=== PATIENT | male | born 1955 | race Caucasian/White ===

== ENCOUNTER 2017-05-27 10:58 | Observation (INO) | payer BC, OTHER ==
[2017-05-27] MEDS ORDERED: NS 0.9% 1000 ML* 1,000 ML IV ONE (11:33)
[2017-05-27] MEDS ORDERED: Metoclopramide IV* 5 MG/ML 2 ML VIAL IV SLOW PU ONE (11:33)
[2017-05-27 11:51] LABS: Hematocrit 42 % (42-52); Hemoglobin 14.1 g/dl (14.0-18.0); Mean Corpuscular HGB Conc 34 g/dl (31-36); Mean Corpuscular Hemoglobin 31 pg (27-31); Mean Corpuscular Volume 93 fL (80-94); Mean Platelet Volume 9 um3 (7.4-10.4); Red Cell Distribution Width 14 % (10.5-15); White Blood Count 14.1 10^3/ul (3.5-10.8)
[2017-05-27] MEDS ORDERED: Meclizine TAB* 12.5 MG PO ONE ×2 (11:53→16:07)
[2017-05-27 12:16] LABS: Albumin 3.4 g/dL (3.2-5.2); BUN/Creatinine Ratio 12.9 (8-20); Calcium 8.7 mg/dL (8.6-10.3); EGFR Non-African American 59.1 (>60); Globulin 2.2 g/dL (2-4); Total Bilirubin 0.7 mg/dL (0.2-1.0); Total Protein 5.6 g/dL (6.4-8.9)
--- NOTE | 2017-05-27 12:17 | RAD ---
HISTORY: Vertigo COMPARISONS: ] A October 02, 2012 TECHNIQUE: Multiple contiguous axial CT scans were obtained of the head without intravenous contrast. FINDINGS: HEMORRHAGE/INFARCT: There is no hemorrhage or acute infarct. MASSES/SHIFT: There is no mass or shift. EXTRA-AXIAL SPACES: There are no extra-axial fluid collections. SULCI AND VENTRICLES: The sulci and ventricles are normal in size and position for the patient's stated age. CEREBRUM: There are no focal parenchymal abnormalities. BRAINSTEM: There are no focal parenchymal abnormalities. CEREBELLUM: There are no focal parenchymal abnormalities. VESSELS: The vessels are grossly normal. PARANASAL SINUSES: The paranasal sinuses are clear. ORBITS: The orbits are unremarkable. BONES AND SOFT TISSUE: No bone or soft tissue abnormalities are noted. OTHER: None IMPRESSION: NO ACUTE INTRACRANIAL PATHOLOGY.
[2017-05-27] MEDS ORDERED: Diazepam SYRINGE* 5 MG/ML 10 ML SYRINGE (50 MG total) IV ONE ×2 (13:09→16:20)
[2017-05-27] MEDS ORDERED: PROCHLORPERAZINE INJ 5 MG/ML 2 ML VIAL IV ONE (14:25)
--- NOTE | 2017-05-27 15:26 | RAD ---
HISTORY: Vertigo COMPARISONS: Head CT dated May 27, 2017, MRI dated October 02, 2012 TECHNIQUE: The following sequences were obtained of the head: Sagittal T1-weighted images, axial T2-weighted images, axial FLAIR images, axial susceptibility weighted images, axial T1-weighted images. Additionally, axial diffusion-weighted images were obtained with calculated apparent diffusion coefficients. FINDINGS: HEMORRHAGE/INFARCT: There is no hemorrhage or acute infarct. MASSES/SHIFT: There is no mass or shift. EXTRA-AXIAL SPACES/MENINGES: There are no extra-axial fluid collections. SULCI AND VENTRICLES: The sulci and ventricles are normal in size and position for the patient's stated age. CEREBRUM: There are no focal parenchymal abnormalities. BRAINSTEM: There are no focal parenchymal abnormalities. CEREBELLUM: There are no focal parenchymal abnormalities. The cerebellar tonsils are normal in size and position. SELLA: The sella is normal. PINEAL: The pineal region is clear. CP ANGLE/TEMPORAL BONES: The labyrinthine structures are grossly normal. VESSELS: Normal flow-voids are noted within the visualized vertebral vasculature. DIFFUSION ABNORMALITIES: There are no diffusion abnormalities. PARANASAL SINUSES/MASTOIDS: There is a mucous retention cyst of the left maxillary sinus. ORBITS: The orbits are unremarkable. BONES AND SOFT TISSUE: No bone or soft tissue abnormalities are noted. OTHER: None IMPRESSION: 1. UNREMARKABLE MRI OF THE BRAIN. NO RESTRICTED DIFFUSION TO SUGGEST ACUTE INFARCT.
[2017-05-27] MEDS ORDERED: methylPREDNISolone 125 MG* 2 ML VIAL IV ONE (16:07)
[2017-05-27] MEDS ORDERED: Meclizine TAB* 12.5 MG PO PRN (17:05)
[2017-05-27] MEDS ORDERED: Acetaminophen TAB* 325 MG PO PRN (17:06)
[2017-05-27] MEDS ORDERED: Ondansetron INJ* 2 MG/ML VIAL IV PRN (17:06)
[2017-05-27] MEDS ORDERED: PROCHLORPERAZINE INJ 5 MG/ML 2 ML VIAL IV PRN (17:40)
[2017-05-27] MEDS ORDERED: Enoxaparin(*) 30 MG/0.3 ML SYR SUBCUT SCH (18:00)
--- NOTE | 2017-05-27 20:22 | CONS ---
NEUROLOGY CONSULTATION: DATE OF CONSULT: 05/27/17 LOCATION: He is in the emergency room. REFERRING PROVIDER: Dr. Chintan Rasheed. CHIEF COMPLAINT: Vertigo and nausea. HISTORY OF PRESENT ILLNESS: Jas Phelps is a 62-year-old man, who has been in his usual state of health this morning about an hour after he got up when he bent over and suddenly everything started spinning. He developed nausea and vomiting and could not walk. He eased himself to the ground. His , I believe, called 911 and he was brought into the emergency room. In the emergency room, he has been given some meclizine and metoclopramide and he feels a little bit better, but not much. He still has marked dizziness and nausea. He has had a couple of brief episodes of vertigo less than a minute each several years ago, but nothing else. He has no significant change in hearing or fullness in his ears today. He just flew back from [place] yesterday and did not have any problems with the flight other than related to his prostate and frequent urination. He has not had any recent colds, flus, or fevers. He does not have any problems with headache, neck pain, or ear pain. He has not noticed any double vision or numbness in his extremities other than chronic numbness and tingling in his feet, for which he was evaluated by Dr. Staton in the past. He has no significant weakness of his limbs. There has been no change in his speech. 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 MEDICATIONS: He does not take any medications at home. ALLERGIES: He is allergic to SULFA drugs, but does not know what the reaction was. SOCIAL HISTORY: He is a nonsmoker. REVIEW OF SYSTEMS: Negative for cardiac disease, pulmonary problems, other GI problems. He has prostatic hypertrophy and urinary frequency. He has a history of migraines in the past. He has a history of right knee meniscus problem for which he wears a brace. PHYSICAL EXAM: He is well-nourished and looks uncomfortable. Blood pressure on the monitor is 160/100, last recorded in the computer is 130/80. Heart rate is 90 and sinus on the monitor, respiratory rate is 18, and oxygen saturation is 100% on room air. Temperature is 98.3 on temporal scan. Neck is supple. Heart is in a regular rate and rhythm without murmurs. Lungs are clear anterolaterally. There are no cervical bruits. Neurological exam, pupils are equal at about 4 mm in dim room light, reacting consensually to 2.5 mm to bright light. Eye movements are full with right- beating nystagmus in primary position, which is accentuated to right gaze with torsional component, and present to some extent in up gaze also in the same direction. Nystagmus dissipates in down gaze and is not present in left gaze. Visual ontiveros are full to confrontation. Funduscopic exam reveals normal discs and vessels bilaterally. Facial musculature is symmetric. Facial sensation is intact and symmetric to light touch, temperature, and pin discrimination. Palate and tongue appear normal. Palate rises symmetrically and tongue protrudes in the midline. There is no dysarthria. Hearing is intact to light tuning fork bilaterally and Delgado's test is midline. Motor exam reveals normal strength and tone in the upper and lower extremities. There is no drift of any limb. Cgfcit-tx-gefa maneuver is normal bilaterally. Mxqn-fu-nujc maneuvers normal bilaterally. There is no rest tremor. There is no sustention tremor. Sensory exam: The limbs are symmetric to temperature, pin, and light touch. There is mild loss of vibratory sense in the feet. Reflexes are hypoactive, trace at the knees, absent at the ankles. Plantar responses are flexor bilaterally. I did not attempt to ambulate him. I attempted a head thrust test, but it aggravated his nausea such that I was not able to discern any clear abnormality or actually doing adequate test. He is alert and oriented and an excellent historian. Memory is intact and language is fluent. He has good attention, concentration, and fund of knowledge. DIAGNOSTIC STUDIES/LAB DATA: Includes a CT of the brain without contrast, which I reviewed and is interpreted by the radiologist as normal. Laboratory studies are notable for creatinine of 1.24, which is stable if not lower than his historic creatinines, which ranged between 1.24 and 1.45 over the last 3 years. His glucose today is 135. The rest of the chemistry profile was unremarkable. CBC is notable for white blood cell count of 14.1 with normal hemoglobin and platelet count. There is no left shift. 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 He has unidirectional nystagmus and no other findings on neurological exam to suggest a central nervous system process. However, the sudden onset when he was well for the first hour of the day, suggests a possible vascular onset. Therefore, I recommend the non- contrasted brain MRI scan. If that is negative, then I think he can continue to be treated symptomatically with antiemetics and anti- vertigo medicines such as benzodiazepines, Zofran, and Reglan. [id number]/[facility] #: [id number] HEL[facility] HAYES HOSPITALCecile
--- NOTE | 2017-05-27 22:04 | ED ---
Ingris Abernathy Thomas, scribed for Chintan Rasheed MD on 05/27/17 at 1131 . Dizziness - HPI Summary HPI Summary: The pt is a 62 y/o M presenting to the ED c/o dizziness characterized as room- spinning, nausea, and vomiting that began today at about 09:00. He did not wake up with this dizziness. The symptoms are aggravated when the patient opens his eyes or moves his head. The patient has treated the symptoms with nothing DIRECTOR OF DIAGNOSTIC IMAGING. Pt additionally c/o unsteady gait (secondary to dizziness). Pt denies headache, tinnitus, hearing loss, chest pain, and SOB. He reports prior episodes of dizziness that are similar to his current symptoms. - History Of Current Complaint Chief Complaint: EDDizziness Stated Complaint: DIZZY/NAUSEA/VOMITING Hx Obtained From: Patient Onset/Duration: Still Present Timing: Constant Severity Currently: Moderate Character: Room Spinning Aggravating Factor(s): Other - Movement, opening eyes Associated Signs And Symptoms: Positive: Nausea, Vomiting, Unsteady Gait. Negative: Tinnitus, Chest Pain, SOB, Visual Changes, Other: - headache, hearing loss Related History: Similar Episode/Dx as - similar prior episodes - Allergies/Home Medications Allergies/Adverse Reactions: Allergies Allergy/AdvReac Type Severity Reaction Status Date / Time Sulfa Drugs Allergy PT UNSURE- Verified 02/07/17 10:38 WAS WHEN HE WAS 6 YRS OLD PMH/Surg Hx/FS Hx/Imm Hx Previously Healthy: No Endocrine/Hematology History: Reports: Hx Thyroid Disease - hypothyroidism Denies: Hx Diabetes Cardiovascular History: Denies: Hx Hypertension, Hx Pacemaker/ICD GI History: Reports: Hx Irritable Bowel History: Reports: Hx Benign Prostatic Hyperplasia Denies: Hx Renal Disease Sensory History: Denies: Hx Hearing Aid Psychiatric History: Denies: Hx Panic Disorder - Cancer History Cancer Type, Location and Year: SKIN CA - Surgical History Surgery Procedure, Year, and Place: Lt SHOULDER- ARTHROSCOPIC- 1997 Infectious Disease History: No Infectious Disease History: Reports: Traveled Outside the [place] in Last 30 Days - Family History Known Family History: Positive: Other - Migraines - Social History Lives: With Family Alcohol Use: Occasionally Substance Use Type: Reports: None Smoking Status (MU): Never Smoked Tobacco Review of Systems Negative: Fever, Chills Negative: Erythema - eyes Negative: Sore Throat, Other - tinnitus, hearing loss Negative: Chest Pain Negative: Shortness Of Breath, Cough Positive: Vomiting, Nausea. Negative: Abdominal Pain Negative: dysuria, hematuria Negative: Myalgia, Edema - legs Negative: Rash Neurological: Other - Dizziness, unsteady gait (secondary to dizziness) All Other Systems Reviewed And Are Negative: Yes Physical Exam - Summary Physical Exam Summary: Constitutional: Well-developed, Well-nourished, Alert. (-) Distressed Skin: Warm, Dry HENT: Eyes: Conjunctiva normal Neck: Musculoskeletal ROM normal neck. (-) JVD, (-) Stridor, (-) Tracheal deviation Cardio: Rhythm regular, rate normal, Heart sounds normal; Intact distal pulses; The pedal pulses are 2+ and symmetric. Radial pulses are 2+ and symmetric. (-) Murmur Pulmonary/Chest wall: Effort normal. (-) Respiratory distress, (-) Wheezes, (-) Rales Abd: Soft. (-) Tenderness, ~(-) Distension, (-) Guarding, (-) Rebound Musculoskeletal: (-) Edema Lymph: (-) Cervical adenopathy Neuro: The patient has resting nystagmus that does not increase with [place] to either side. Alert, Oriented x3, Strength normal, Cranial nerves II- XII are grossly intact. (-) Dysmetria, (-) Ataxia by finger to nose testing, (- ) Sensory deficit. Psych: Mood and affect Normal Triage Information Reviewed: Yes Vital Signs On Initial Exam: Initial Vitals Temp Pulse Resp BP Pulse Ox 98.3 F 72 20 130/98 98 05/27/17 11:06 05/27/17 11:06 05/27/17 11:06 05/27/17 11:06 05/27/17 11:06 Vital Signs Reviewed: Yes - [place] Coma Scale Coma Scale Total: 15 Diagnostics - Vital Signs Vital Signs Temp Pulse Resp BP Pulse Ox 05/27/17 11:06 98.3 F 72 20 130/98 98 - Laboratory Result Diagrams: 05/27/17 11:42 05/27/17 11:42 Lab Statement: Any lab studies that have been ordered have been reviewed, and results considered in the medical decision making process. - CT CT Brain CT Interpretation: No Acute Changes - No acute intracranial pathology. ED physician has reviewed this report and agrees. GCS 15. CT Interpretation Completed By: Radiologist - EKG 11:51 Cardiac Rate: NL EKG Rhythm: Sinus Rhythm EKG Interpretation: 76 BPM. No STEMI. - Additional Comments Diagnostic Additional Comments: MRI Brain without Contrast. Interpreted by radiologist. Impression: 1. UNREMARKABLE MRI OF THE BRAIN. NO RESTRICTED DIFFUSION TO SUGGEST ACUTE INFARCT. ED physician has reviewed this report and agrees. Re-Evaluation - Re-Evaluation First Eval Re-Evaluation Time: 12:39 Change: Unchanged Comment: The patient was re-evaluated. His condition is unchanged. He denies diplopia. Second Eval Re-Evaluation Time: 14:25 Change: Unchanged Comment: The patient has no improvement with Valium. Third Eval Re-Evaluation Time: 16:22 Change: Unchanged Comment: The patient is still having acute nystagmus, discomfort, and nausea. I feel that he would be unable to stand and would be at risk for injury. Dr. Alejo also evaluated the patient and he recommends admission for further supportive care. The patient had concerns about taking steroids as his in house cra told him that it could reactivate his skin cancer. Dizzy Course/Dx - Course Assessment/Plan: The pt is a 62 y/o M presenting to the ED c/o dizziness characterized as room-spinning, nausea, and vomiting that began today at about 09:00. He did not wake up with this dizziness. The symptoms are aggravated when the patient opens his eyes or moves his head. The patient has treated the symptoms with nothing DIRECTOR OF DIAGNOSTIC IMAGING. Pt additionally c/o unsteady gait (secondary to dizziness). Pt denies headache, tinnitus, hearing loss, chest pain, and SOB. He reports prior episodes of dizziness that are similar to his current symptoms. In the ED course the patient was given IV fluids, Meclizine, and Reglan. Bloodwork shows WBC 14.1, creatinine 1.24, and glucose 135. EKG shows sinus rhythm at 76 BPM with no STEMI. CT Brain shows no acute intracranial pathology. I consulted with Dr. Alejo, neurologist, who came to the ED to evaluate the patient. He suspects vesticular neuritis, but he recommends MRI due to the acute onset of symptoms. MRI Brain shows 1. UNREMARKABLE MRI OF THE BRAIN. NO RESTRICTED DIFFUSION TO SUGGEST ACUTE INFARCT. At re-evaluation at 16:40, the patient is still having acute nystagmus, discomfort, and nausea. I feel that he would be unable to stand and would be at risk for injury. Dr. Alejo also evaluated the patient and he recommends admission for further supportive care. The patient had concerns about taking steroids as his in house cra told him that it could reactivate his skin cancer. The patient is diagnosed with vestibular neuritis. The patient will be admitted to [facility] by Dr. Montejo. - Diagnoses Provider Diagnoses: Vestibular neuritis - Provider Notifications Discussed Care Of Patient With: Dominguez Alejo Time Discussed With Above Provider: 12:32 Instructed by Provider To: Other - I consulted with Dr. Alejo, neurology, who will come to the ED to see the patient. He would like to hold off on the MRI until he has evaluated the patient. After his evaluation, he suspects vesticular neuritis, but he recommends MRI due to the acute onset of symptoms. After the MRi and due to the patient's nystagmus, discomfort, and nausea, Dr. Morrow recommends admission for further supportive care. I consulted with Dr. Montejo, hospitalist, who will admit the patient. Discharge - Discharge Plan Condition: Fair Disposition: HOME Prescriptions: Meclizine TAB* [Antivert 12.5 TAB*] 25 mg PO TID #15 tab Methylprednisolone [Medrol Dosepak 4 MG*] 1 mg PO .SEE BATOOL INSTRUCTION #1 packet Ondansetron TAB* [Zofran 4 MG Tab*] 4 mg PO Q6H PRN #12 tab PRN Reason: Nausea/Vomiting Patient Education Materials: Dizziness (ED) Referrals: Marcin Rosales MD [Medical Doctor] - 3 Days Additional Instructions: Follow up with your Dr. Rosales, Ear/Nose/Throat doctor, in 2-3 days. Return to the emergency department for any new or worsening symptoms. The documentation as recorded by the Ingris cisneros Thomas accurately reflects the service I personally performed and the decisions made by me, Chintan Rasheed MD.
--- NOTE | 2017-05-27 23:02 | HP ---
CC: Dr. Gaona; Dr. Alejo * HISTORY AND PHYSICAL: DATE OF ADMISSION: 05/27/17 PRIMARY CARE PHYSICIAN: Dr. Gaona. ATTENDING PHYSICIAN: Zakia Montejo MD * (report dictated by Lyudmila Frederick NP) CHIEF COMPLAINT: Dizziness. HISTORY OF PRESENT ILLNESS: The patient is a 62-year-old male with past medical history significant for only hypothyroidism, who presents to the emergency room with a complaint of sudden onset of dizziness. The patient just took a long flight back from a trip in [place]. This morning, about an hour after woke up, the patient developed dizziness, vertigo, and nausea. The patient was unable to walk through the house and was throwing up. The patient was brought to the emergency room for further evaluation. In the emergency room , the patient received a dose of Solu-Medrol, meclizine, as well as IV Valium. With these medications, the patient states he feels a little bit better. The patient last vomited around 2 p.m. The patient had an MRI that was negative for any acute stroke. The patient was seen in consultation by Dr. Alejo from Neurology. Recommendation was for the patient to be observed overnight for symptom management as he is unable to currently walk and return home. The patient was placed on observation for acute labyrinthitis. PAST MEDICAL HISTORY: Hypothyroidism. PAST SURGICAL HISTORY: Rotator cuff tear. MEDICATION: Synthroid 88 mcg oral daily. ALLERGIES: SULFA. FAMILY HISTORY: Reviewed and noncontributory. SOCIAL HISTORY: The patient denies any tobacco, alcohol, or drug use. He is retired. He is . His , Bree, is the surrogate decision maker in the event the patient cannot make decisions for himself. REVIEW OF SYSTEMS: I performed a 14-point review of systems; all the pertinent positives and negatives are mentioned in the history of present illness. The remaining review of systems is negative. PHYSICAL EXAMINATION GENERAL APPEARANCE: The patient was alert, lying in bed with eyes closed, appeared to be in no acute distress. VITAL SIGNS: Temperature 98.3, heart rate 97, respiratory rate 16, blood pressure 122/84, oxygen saturation 97%. HEAD, EYES, EARS, NOSE, AND THROAT: Normocephalic/atraumatic. Eyes: Nystagmus noted with right and left gaze. Pupils are equal and reactive to light. Extraocular movements were intact. NECK: Supple. There is no lymphadenopathy noted. RESPIRATORY: There was no accessory muscle use. Lungs were clear to auscultation. CARDIAC: S1, S2 were crisp. There were no murmurs, rubs, or gallops heard. ABDOMEN: Soft, nontender, and nondistended. There are bowel sounds x4. EXTREMITIES: There was no lower extremity edema. DP and PT pulses were 2+ and symmetric. MUSCULOSKELETAL: There is no clubbing or cyanosis noted. The patient exhibited equal strength in all extremities. SKIN: There were no rashes or abnormalities seen. NEURO: Cranial nerves II through XII are intact. The patient moves all extremities. Lower extremities were intact to light touch. PSYCH: The patient is alert and oriented x3. DIAGNOSTIC STUDIES/LAB DATA: Sodium 136, potassium 4, chloride 109, CO2 21, BUN 16, creatinine 1.2, glucose 135, calcium 8.7. Liver function tests within normal limits. White blood cell count 14.1, hemoglobin 14.1, hematocrit 42, and platelet count 196. CT of the brain without contrast from today shows no acute intracranial pathology. MRI of the brain without contrast reads unremarkable. MRI of the brain, no restricted diffusion to suggest acute infarct. IMPRESSION: This is a 62-year-old male with past medical history significant only for hypothyroidism, who presented to the emergency room with a complaint of sudden onset of dizziness. The patient will be placed on observation for presumed labyrinthitis. ASSESSMENT AND PLAN: 1. Labyrinthitis. The patient will be placed on the medical floor for supportive care. He will have meclizine and Valium as needed as well as Compazine and Zofran for nausea. The patient will have Physical Therapy evaluation in the morning. The patient may need vestibular therapy at discharge. The patient was given a dose of Solu-Medrol in the emergency room, yet the research on use of corticosteroids in the setting of labyrinthitis is inconclusive for the time being. The patient will not be on any further corticosteroids. 2. Hypothyroidism. Synthroid will continue. 3. Fluids, electrolytes, and nutrition: The patient will have a regular diet. He will also have IV fluids as his oral intake is not very significant at this point. 4. DVT prophylaxis: He is at moderate risk. He will have subcu Lovenox. TIME SPENT: The time for this admission was 60 minutes and 30 minutes was spent with the patient discussing medications, past medical history, and events leading up to his arrival in the emergency room. Reviewed by LYUDMILA FREDERICK NP 05/28/2017 1130 [id number]/[facility] #: [id number] KLAUDIA
[2017-05-28] MEDS: Diazepam TAB(*) 5 MG PO PRN ×2 (01:24→09:26)
[2017-05-28] MEDS ORDERED: Levothyroxine TAB* 88 MCG TAB PO SCH (06:00)
[2017-05-28 08:04] LABS: Hematocrit 41 % (42-52); Hemoglobin 13.9 g/dl (14.0-18.0); Mean Corpuscular HGB Conc 34 g/dl (31-36); Mean Corpuscular Hemoglobin 32 pg (27-31); Mean Corpuscular Volume 93 fL (80-94); Mean Platelet Volume 8 um3 (7.4-10.4); Red Blood Count 4.39 10^6/ul (4.0-5.4); Red Cell Distribution Width 15 % (10.5-15); White Blood Count 7.3 10^3/ul (3.5-10.8)
[2017-05-28 08:12] VITALS: BP 137/89
[2017-05-28 08:18] LABS: BUN/Creatinine Ratio 8.9 (8-20); EGFR African American 76.7 (>60); EGFR Non-African American 59.6 (>60); Potassium 3.8 mmol/L (3.5-5.0)
[2017-05-28] MEDS ORDERED: predniSONE TAB* 20 MG PO SCH (09:00)
--- NOTE | 2017-05-28 09:08 | PN ---
Subjective Date of Service: 05/28/17 Interval History: Patient seen and examined at bedside. Patient states nausea has improved. Dizziness still persists. Has not had meclizine yet. Dizziness no worse sitting than standing. Family History: Unchanged from Admission Social History: Unchanged from Admission Past Medical History: Unchanged from Admission Objective Active Medications: Acetaminophen (Tylenol Tab*) 650 mg PO Q4H PRN Diazepam (Valium Tab(*)) 5 mg PO Q8H PRN Enoxaparin Sodium (Lovenox(*)) 30 mg SUBCUT Q24H MIKHAIL Lactated Ringer's (Lactated Ringers 1000 Ml Bag*) 1,000 mls @ 125 mls/hr IV PER RATE MIKHAIL Levothyroxine Sodium (Synthroid Tab*) 88 mcg PO DAILY@0600 MIKHAIL Meclizine HCl (Antivert Tab*) 25 mg PO Q8HR PRN Ondansetron HCl (Zofran Inj*) 4 mg IV Q6H PRN Prochlorperazine Edisylate (Compazine Inj*) 10 mg IV Q6H PRN Vital Signs Temp Pulse Resp BP Pulse Ox 97.7 F 82 14 137/89 99 05/28/17 08:04 05/28/17 08:04 05/28/17 08:04 05/28/17 08:04 05/28/17 08:04 Oxygen Devices in Use Now: None Appearance: sitting up in bed, NAD Eyes: No Scleral Icterus, PERRLA Ears/Nose/Mouth/Throat: NL Teeth, Lips, Gums, - - nystagmus to the right Neck: NL Appearance and Movements; NL JVP Respiratory: Symmetrical Chest Expansion and Respiratory Effort, Clear to Auscultation Cardiovascular: NL Sounds; No Murmurs; No JVD, RRR, No Edema Abdominal: NL Sounds; No Tenderness; No Distention Extremities: No Edema Skin: No Rash or Ulcers Neurological: Alert and Oriented x 3 Lines/Tubes/Other Access: Clean, Dry and Intact Peripheral IV Nutrition: Taking PO's Result Diagrams: 05/28/17 07:46 05/28/17 07:46 Assess/Plan/Problems-Billing Patient is a 62 y/o M w/ hx of hypothyroidism who presented to the ED 2016 w/ the c/o of sudden onset of dizziness, vertigo. - Patient Problems (1) Vestibular neuronitis Comment: Appreciate neurology input. Continue supportive care with valium, meclizine and anti-emetics. May need vestibular rehabilitation. (2) Hypothyroidism Comment: Continue Synthroid. (3) DVT prophylaxis Comment: Lovenox (4) Full code status Status and Disposition: OBV for vestibular neuronitis. Plan to discharge home when stable.
--- NOTE | 2017-05-28 20:36 | CONS ---
CC: Dr. Gaona * NEUROLOGY CONSULTATION: DATE OF CONSULT: 05/28/17 LOCATION: He is in room #421. HOSPITALIST: Lyudmila Frederick NP. CHIEF COMPLAINT: Vertigo. INTERVAL HISTORY: Since yesterday, Mr. Phelps feels better. He still has a fair amount of vertigo, but it is not as intense and his nausea is much less. He has been receiving diazepam and also Compazine. He was able to get up and get to a chair today under his own power. He is contemplating if he is well enough to go home. With specific questioning, he admits to feeling extremely restless and fidgety. He was not sure if it was just from being in a hospital bed or something else. No intestinal problems otherwise. PHYSICAL EXAM: He continues with a fairly low amplitude right beating nystagmus in primary position, which is accentuated in rightward gaze. There is a little bit of right beating and torsional nystagmus in upgaze. There is no nystagmus in left gaze or in downward gaze. Speech is clear. There is no tremor in the limbs. Past pointing maneuver in the hand is as normal. He is alert with intact memory and fluent language. DIAGNOSTIC STUDIES/LAB DATA: There is no new laboratory study to review. His MRI of the brain was reviewed last evening and did not show any evidence of an acute infraction. It was interpreted as normal by Dr. Barrientos. IMPRESSION: Vestibular neuronitis, which is improving along an expected time course. I would stop Compazine at this point, as he is probably getting akathisia from it. I would not use meclizine either as he has prostatic hypertrophy and it could cause urinary retention. I would recommend that if he is discharged, he take diazepam as needed 2 to 5 mg up to 3 times per day and ondansetron for nausea. I advised that if he does not feel like his balance is back to normal within about 7 days, he should probably see a physical therapist for vestibular rehabilitation. I would be happy to see him in my office in followup as well if symptoms persist. [id number]/[facility]PS #: [id number] MTDCecile
--- NOTE | 2017-05-29 11:42 | DS ---
CC: Dr. Alejo * DISCHARGE SUMMARY: DATE OF ADMISSION: 05/27/17 DATE OF DISCHARGE: 05/28/17 PRIMARY CARE PROVIDER: Dr. Gaona. ATTENDING PHYSICIAN: Dr. Zakia Montejo * (report dictated by Lyudmila Frederick NP). PRIMARY DIAGNOSES: 1. Vestibular neuronitis. 2. Labyrinthitis. SECONDARY DIAGNOSIS: Hypothyroidism. CONSULTATIONS WHILE IN THE HOSPITAL: Dr. Vinh Alejo. STUDIES WHILE IN THE HOSPITAL: 1. CT brain without contrast 05/27/17, no acute intracranial pathology. 2. MRI of the brain without contrast 05/27/17, unremarkable MRI of the brain, no restricted diffusion to suggest acute infarct. MEDICATIONS AT THE TIME OF DISCHARGE: New medications, 1. Valium 5 mg oral every 8 hours as needed, not to exceed 3 per day. 2. Zofran 4 mg oral every 8 hours as needed. Following medications are medications the patient came in on: Synthroid 88 mcg oral daily. HISTORY OF PRESENT ILLNESS AND HOSPITAL COURSE: Mr. Phelps is a 62-year-old male with past medical history significant hypothyroidism, who presented to the emergency room on 05/27/17 and complained on sudden onset of dizziness. The patient was unable to walk or move through his house and he was brought to the emergency room for further evaluation. In the emergency room, the patient was given Solu-Medrol, meclizine as well as Valium. The patient's MRI was negative for any acute stroke and seen in consultation by Dr. Alejo from Neurology. Please refer to his consultation for details. Impression was that the patient had vestibular neuronitis. The patient was admitted to the medical floor and had a liter of IV fluids overnight as well as IV Zofran and oral Valium. The patient was given one dose of meclizine yet it can cause urinary retention, and given the patient issues with large prostrate, this was discontinued. The next morning with these medications, the patient's dizziness improved enough that he could tolerate oral intake. He was able to eat and drink without any nausea. In addition, he was able to ambulate to the bathroom independently. At this point, he was stable to be discharged home. Vitals are as follows. Temperature 97.7, heart rate 82, respiratory rate 14, blood pressure 137/89, oxygen saturation 99%. DISCHARGE PLAN: The patient discharged on a regular diet. The patient was instructed to follow up with his primary care provider within 4 to 7 days. The patient was instructed that if he still feels like he has issues with his balance in 1 week. He has been setup with an appointment for vestibular therapy at [place] on 06/12/17 at 8 a.m., that is at [facility] at [place]. The patient should return to the hospital if he is having difficulty ambulating independently or if he cannot tolerate oral intake. I reviewed all these instructions with the patient and his , they are agreeable with his discharge today. This is a summarized report of a complex medical history and hospital stay. For more details, please see the entire medical record. TIME SPENT: Time for this discharge was 50 minutes, and 25 minutes was spent with the patient discussing medications, discharge, and followup instructions. CONDITION ON DISCHARGE: Stable. LYUDMILA FREDERICK NP [id number]/[facility] #: [id number] KLAUDIA
== END 2017-05-28 14:55 | disposition home or self-care (01) ==
LOC: ED 10:58 → MED 16:23
PROVIDERS: ADMIT Internal Medicine; ATTEND Internal Medicine
DX: H81.20 Vestibular neuronitis, unspecified ear (principal); H83.09 Labyrinthitis, unspecified ear; E03.9 Hypothyroidism, unspecified; Z88.2 Allergy status to sulfonamides
CPT/HCPCS: 36415; 70450; 70551; 80048; 80053; 85025; 85027; 93005; 96372; 96374; 96375; 99284; A9270-GY; G0378; G8978-GP-CI; G8979-GP-CI; G8980-GP-CI; J0780; J1650; J2405; J2765; J3360